=== PATIENT | female | born 1970 ===

== ENCOUNTER 2023-10-18 08:56 | Emergency (ER) | payer SELFPAY ==
[2023-10-18] MEDS ORDERED: HYDR25TA2 PO (09:07)
[2023-10-18] MEDS ORDERED: LISI-892 PO (09:07)
== END 2023-10-18 09:13 | disposition left against medical advice (07) ==
LOC: EMS 08:57
DX: Z53.21 Procedure and treatment not carried out due to patient leaving prior to being seen by health care provider (principal)